=== PATIENT | female | born 1985 | race Caucasian/White ===

== ENCOUNTER 2017-07-23 11:06 | Emergency (ER) | payer OTHER ==
[~2017-07-23] VITALS: Ht 160 cm; Wt 64.4 kg
[~2017-07-23 11:06] MED LIST: BLM PO; IBUPROFEN600 M1 PO; LINZESS290 MC1 PO; MOTRIN 800MG T800 MG PO; PERCOCET 325 MG1 TA2 PO; PRENATAL VITAMI1 TA4 PO; ZOFRAN ODT4 M1 SL
[2017-07-23 11:15] VITALS: BP 129/76
== END 2017-07-23 12:31 | disposition admitted as inpatient to this hospital (09) ==
LOC: ERH 11:06
DX: R10.33 Periumbilical pain (principal)